=== PATIENT | female | born 1960 | race Caucasian/White ===

== ENCOUNTER 2016-10-10 06:24 | Day surgery (SDC) | payer BC ==
[~2016-10-10] VITALS: Ht 165.1 cm; Wt 71.0 kg
[~2016-10-10 06:24] MED LIST: ADVIL200 MG PO; VITAMIN D 400400 IU PO; ZESTRIL 20MG TA20 MG PO
[2016-10-10 07:09] VITALS: BP 139/81; PULSE 73; TEMP 98.1
[2016-10-10] MEDS ORDERED: ASPIRIN 32325 MG/TAB PO (07:15)
[2016-10-10 07:48] VITALS: BP 100/70; PULSE 76; TEMP 97.5
[2016-10-10 08:00] VITALS: BP 104/74; PULSE 66
== END 2016-10-10 08:15 | disposition home or self-care (01) ==
LOC: SDCO 06:24
DX: Z12.11 Encounter for screening for malignant neoplasm of colon (principal); K63.5 Polyp of colon; K57.30 Diverticulosis of large intestine without perforation or abscess without bleeding; Z86.010 Personal history of colon polyps; I10 Essential (primary) hypertension
CPT/HCPCS: J2250; J2405; J3010; J7030

== ENCOUNTER → 2016-11-26 | Outpatient (CLI) | payer BC ==
[~2016-11-26] MED LIST changes: +ASPIRIN 32325 MG/TAB PO
== END ==
LOC: MC.RAD 07:40
DX: Z12.31 Encounter for screening mammogram for malignant neoplasm of breast (principal)

== ENCOUNTER → 2017-11-27 | Outpatient (CLI) | payer BC | LOC: MC.RAD 07:30 | DX: Z12.31 Encounter for screening mammogram for malignant neoplasm of breast (principal) ==

== ENCOUNTER → 2018-12-16 | Outpatient (CLI) | payer BC | LOC: MC.RAD 07:30 | DX: Z12.31 Encounter for screening mammogram for malignant neoplasm of breast (principal) ==

== ENCOUNTER → 2020-01-03 | Outpatient (CLI) | payer BC | LOC: MC.RAD 07:58 | DX: Z12.31 Encounter for screening mammogram for malignant neoplasm of breast (principal) ==

== ENCOUNTER → 2021-02-06 | Outpatient (CLI) | payer BC | LOC: MC.RAD 08:53 | DX: Z12.31 Encounter for screening mammogram for malignant neoplasm of breast (principal) ==

== ENCOUNTER → 2021-12-25 | Outpatient (CLI) | payer BC | LOC: COL.RAD 13:03 | DX: Z12.2 Encounter for screening for malignant neoplasm of respiratory organs (principal); F17.210 Nicotine dependence, cigarettes, uncomplicated ==